=== PATIENT | female | born 1990 | race Caucasian/White ===

== ENCOUNTER 2022-10-20 00:08 | Day surgery (SDC) | payer OTHER, SELFPAY ==
[2022-10-07 12:51] VITALS: BMI 23.7
--- NOTE | 2022-10-07 12:56 | PC.NURSE ---
Report to the Outpatient Waiting Room, entrance under the green pavilion located off [facility], at time 0630 on date 10/20/22. Planned Procedure Time: 0830. Time changes happen often and if your time is changed the preop area will call you the afternoon before. - You and your visitor will be asked to self-screen and do not enter if you have any COVID symptoms. - Only one visitor is requested with a max of two and NO children visitors are allowed at this time. - The patient visitor may be requested to leave or wait in car when not with patient due to distancing restrictions. - A mask is optional within the hospital. Patients may have clear liquids (water, carbonated beverages, clear teas, apple juice) until 3 hours prior to surgery with a maximum of 20 ounces. - No food from midnight until time of surgery Take the following medications with a SIP of water the morning of surgery: NONE Medications to discontinue per physician: VITAMIN Date to take last dose: 10/16/22 Please no make-up, nail maltese, hairspray, perfume, deodorant, or body powder the day of surgery. No jewelry (including any body piercings) or valuables the day of surgery, leave them at home. Please take a shower or bath the night before, or the morning of, surgery with an antibacterial soap. Wear comfortable, loose fitting clothing. - Jewelry must be removed prior to entering the operating room. Rings and piercings that are not removed may be cut off. - The hospital will not accept responsibility for valuables. - Please leave all valuables, including medications, at home the day of surgery. If you are going home after surgery, a licensed electric mule driver must drive you home. - NO public transportation without another adult if you receive anesthesia. - We recommend that an adult stay with you for 24 hours following discharge. - We also recommend that you do not drive, make important decision, drink alcoholic beverages, or take any drugs that were not prescribed by your health care provider for at least 24 hours after your discharge time. Follow any additional instructions given to you from your surgeon. If you or anyone in your household have experienced Covid symptoms in the past week, please notify your surgeon or the nurse liaison at the phone number below for possible testing. Telephone instructions given to PT - SILVINO ROSE and asked if any additional questions and then verbalized understanding. Patient advised to call surgeon office or pre surgery nurse liaison [phone] if any additional questions.
[2022-10-20] VITALS (7 sets, daily range): BP systolic 110–131; BP diastolic 83–96; PULSE 77–110; RESP 14–20; TEMP 36.1–36.7; O2SAT 96–100
[2022-10-20] MEDS: TRANEXAMIC ACID 1,000MG/ISO100 1,000 MG/100 ML BAG 200 MG IVPB (07:15)
[2022-10-20] MEDS: LACTATED RINGERS 1,000 ML 30 ML IV CONT ×2 (07:15→09:35)
--- NOTE | 2022-10-20 07:15 | WPDHPUPDATE1 ---
History and Physical Update Update Date/Time: 10/20/22 07:15 History and Physical has been reviewed, including an updated exam of the patient. There are NO changes in the patient's condition. Risks, benefits, and alternatives have been discussed and questions answered. Patient agrees to proceed with procedure.
--- NOTE | 2022-10-20 07:20 | W.PM.PROC2 ---
Procedure Note - Detailed Date of Procedure 10/20/22 Pre-op Diagnosis micromastia Post-op Diagnosis Same Procedure Performed Bilateral Augmentation Mammaplasty Surgeon Loc Garcia MD Anesthesia General Findings Bilateral Dual Plane 2 Augmentation Mammaplasty Bilateral Derek Cohesive 440cc Right - REF# SCLP-440 SN [id number] Left - REF# SCLP-440 SN [id number] Description of Procedure She is here today for bilateral breast augmentation. Previously and again today the risks, benefits, alternatives were discussed in extensive detail. I wanted her to be very realistic about the risks involved as well as expectations. We discussed aftercare and what to monitor for. Made sure answered all of her questions to her satisfaction today and consent was obtained. Marked in the preoperative holding area with their verification. The patient was taken to the operating room placed supine on the operating table. Anesthesia was provided by anesthesiology. A surgical time-out was taken. We cleansed the skin and 1% lidocaine and 0.25% Marcaine with epinephrine was used anesthetize as a field block. She was prepped and draped in a standard sterile fashion. Tegaderm nipple Arellano were placed. A 15 blade used to make an incision along the inframammary fold. Dissection was continued at 45 degree angle until the chest wall as identified. I incised the pectoralis major along its inferior border and completely released the inferior border leaving the medial border intact. I created a subpectoral pocket in the appropriate dimensions based on our preoperative planning for the implant. I then copiously irrigated with saline solution and verified a strict hemostasis. Next the use a triple antibiotic and Betadine containing solution to irrigate the pocket. I washed my gloves with the triple antibiotic and Betadine solution. We washed the implant immediately upon opening it with this solution and only opened it when we needed it. I used implant funnel and no-touch technique. The implant was introduced into the pocket using the funnel. Having verified positioning of the implant this was closed using 2-0 Vicryl followed by 3-0 Monocryl in a running subcuticular 4-0 Monocryl followed by tissue glue. Fluffs and surgical bra were placed. Patient was awoke and taken to PACU without difficulty. All instrument sponge counts were correct at the end of the case. Estimated Blood Loss 20 Drains No Packing No Pathology None sent Complications No immediate complications Condition Stable Disposition PACU
--- NOTE | 2022-10-20 08:34 | WPDANESEPPF ---
Anes - Initial Pre Proc Eval Procedure: Operation Date: 10/20/22 08:30 Proposed Procedures p Bilateral Breast Augmentation - Loc Garcia MD Date/Time: 10/20/22 08:34 Surgeon: Loc Garcia MD Pre Op Diagnosis: micromastia Patient Data Age: 32 Gender: F Height: 1.73 m Weight: 68.95 kg Last Vital Signs Temp 36.1 C L 10/20/22 07:30 Pulse 98 10/20/22 07:30 Resp 14 10/20/22 07:30 BP 110/84 10/20/22 07:30 Pulse Ox 100 10/20/22 07:30 O2 Del Method Room Air 10/20/22 07:30 Allergies Allergy/AdvReac Type Severity Reaction Status Date / Time clavulanic acid Allergy Mild HIVES,ITCHI Verified 10/20/22 07:43 NG amoxicillin Allergy Unknown Hives Verified 10/20/22 07:43 cefaclor Allergy Unknown Hives Verified 10/20/22 07:43 Penicillins Allergy Hives Verified 10/20/22 07:43 Home Medications Medication Instructions Recorded Confirmed Type multivitamin with iron (Hair 1 tablet PO DAILY 10/07/22 10/07/22 History Vitamins tablet) Patient hx anesthesia problems: none Family hx anesthesia problems: none Results Review: All pre-operative results and documents have been reviewed as part of the pre-operative evaluation. [facility] Social History Social History Smoking status: Never smoker Alcohol intake: current Drinks per week: 4 Substance use: current Substance use type: marijuana Other substance usage details: GUMMIES TO SLEEP Living arrangements: with family Spiritual care concerns: No Anes - Eval Final PreProcedure Day of Procedure 10/20/22 08:34 Patient weight: normal Heart: regular rate and rhythm Lungs: clear to auscultation Airway: Mallampati scale class II Neurological: alert and oriented Last oral intake: >/= 8 hours ASA classification: I Emergent: no Anesthetic plan: proceed Anesthesia type and monitoring: general LMA and standard monitoring Results Review: All pre-operative results and documents have been reviewed as part of the pre-operative evaluation. Informed Consent: The patient's anesthetic plan and its attendant risks and benefits were discussed with the patient/family/POA. Questions were solicited and answers provided to the satisfaction of the patient/family/POA.
[2022-10-20] MEDS: ceFAZolin 2 GM/D5W 50 ML 2 GM/50 ML BAG IVPB (08:40)
[2022-10-20] MEDS: LIDO 1%/EPINEPHRINE/PF 1:200,000 30 ML VIAL XX (08:49)
[2022-10-20] MEDS: BUPIVACAINE HCL 0.25% PF 30 ML VIAL INFILTRATE (08:49)
[2022-10-20] MEDS: NACL 0.9% IRRIG POUR BOTTLE 900 ML, GENTAMICIN SULFATE INJ 160 MG, CLINDAMYCIN PHOS INJ... IRRIGATION (09:11)
[2022-10-20] MEDS: fentaNYL CITRATE INJ (*CRX) 100 MCG/2 ML VIAL 25 MCG IV PUSH ×4 (10:03→10:16)
[2022-10-20] MEDS: oxyCODONE HCL (*CRX) 5 MG TAB IR PO (10:34)
== END 2022-10-20 11:20 | disposition home or self-care (01) ==
PROVIDERS: Visit Provider Surgery Plastic and Reconstructive Surgery
PROC: (CPT 19325; principal; 2022-10-20 08:30)
DX: Z41.1 Encounter for cosmetic surgery (principal); N64.82 Hypoplasia of breast
CPT/HCPCS: 19325; A9270; J0690; J1100; J1170; J1580; J2250; J2405; J2704; J3010; J7120

== ENCOUNTER 2025-11-05 09:39 | Outpatient (CLI) | payer OTHER, SELFPAY ==
--- NOTE | ~2025-11-05 | MMUS_ITS ---
EXAMINATION: MM diag chente implant BI w rick, US breast RT limited HISTORY: Palpable abnormality on the right. TECHNIQUE: Craniocaudal and mediolateral oblique 3-D tomosynthesis images were obtained and synthetic 2-D images were generated. CAD analysis was submitted and interpreted. Grayscale sonography over the area(s) of interest with color Doppler if there is a finding. COMPARISON: None available. BREAST PARENCHYMAL COMPOSITION: Dense: The breasts are heterogeneously dense, which may obscure small masses. MAMMOGRAM FINDINGS: There is/are retropectoral silicone implants. The presence of implants decreases the sensitivity of mammography. No suspicious masses are seen. There are no suspicious calcifications. No unexplained architectural distortion is seen. There are no skin or nipple abnormalities identified. There is no adenopathy seen on the images submitted. ULTRASOUND FINDINGS: No cystic or solid masses are seen in the area(s) of concern. Dense tissue is noted. IMPRESSION: No mammographic evidence to suggest malignancy is seen. Negative or inconclusive breast imaging studies should not deter biopsy if there are clinically suspicious palpable abnormalities. The patient may return to screening mammography as per ACR guidelines. BI-RADS 1 - Negative. Reviewed, dictated and finalized at location C. [facility] IMPRESSION: No mammographic evidence to suggest malignancy is seen. Negative or inconclusiv e breast imaging studies should not deter biopsy if there are clinically suspic ious palpable abnormalities. The patient may return to screening mammography as per ACR guidelines. BI-RADS 1 - Negative.
--- OUTSIDE RECORDS SUMMARY | 2025-11-05 10:51 | XMS_ITS | Clinical Summary ---
Author Organization [facility] Address [address] [place] [address] Care Team Providers Care Welding Machine Operator Gas Name Role Phone Jimenez Piedra MD Primary Care Provider [phone] Source Comments [facility],non-owned Affiliates and Associated Physician Practices is amultiple site organization consisting of ambulatory clinics and hospital sitesin [place], [place], [place] and [place]. This disclosure is being madepursuant to the Care Everywhere program and may not contain all information available regarding this patient. Last updated 18.[facility] Allergies Active Allergy Reactions Criticality Noted Date Comments Penicillins Unknown 02/23/2019 Medications * Be aware that medications may not be up to date on this document. Alwaysverify current medications with the patient. Vit-Fe Fumarate-FA ( VITAMIN) 28-0.8 MG tabletIndicati ons: Take 1 tablet by mouth once daily Reasons: Active pyridoxine (VITAMIN B-6) 25 MG tablet Take 50 mg by mouth as needed Active doxylamine (UNISOM) 25 MG tablet Take 25 mg by mouth nightly as needed for Insomnia Active progesterone (ENDOMETRIN) 100 MGIndications: labor prevention Insert 1 suppository into the vagina at bedtime Reasons: labor prevention 21 suppository 4 9 Active Active Problems Problem Noted Date Diagnosed Date resulting from in vitro fertilization 01/11/2019 Assessment & Plan (01/11/2019 4:16 PM FAMILY DAY CARE PROVIDER): Plan: echocardiogram by 30 weeks--referral made to Pediatric Cardiology Anxiety 01/11/2019 contractions 01/11/2019 Overview (01/11/2019): 12/06: hospitalized and given terbutaline; CL was assessed to be 3.55 cm (twin ) Dichorionic diamniotic twin , antepartu m 01/10/2019 Overview (01/11/2019): Dating: Outside ultrasound performed in the 7th week (on 08/29/2018) larger twin measuring 7 weeks and 3 days; GAUDENCIO 04/14/19. summary: all hand written in [facility], no documented labs sent A+/Imm/-/- HIV NR H&H 14.2/41.6/platelet 330 Antibody screen: negative 06/2017 pap normal Cell free DNA low risk x2, predicted female x2 Assessment & Plan (01/11/2019 4:16 PM FAMILY DAY CARE PROVIDER): Plan: Nightly vaginal progesterone until 35 weeks Serial growth every 4 weeks No indication for testing Total weight gain 31-50 lb, evenly distributed over the Delivery initiation in the 38th week Would benefit from Resolved Problems Problem Noted Date Diagnosed Date Resolved Date Supervision of high-risk pre gnancy of young multigravida 01/10/2019 01/11/2019 Overview (01/11/2019): Immunizations Immunization Administration Dates Next Due TDAP (7yrs+) 02/23/2019 Family History Medical History Relation Name Comments CAD (Coronary Artery Disease) Paternal Grandfather Relation Name Status Comments Brother Alive Father Alive Maternal Grandfather Maternal Grandmother Mother Alive Paternal Grandfather Paternal Grandmother Sister 1 Alive Sister 2 Alive Social History Tobacco Use Types Packs/Day Years Used Date Smoking Tobacco: Never Smokeless Tobacco: Never Alcohol Use Standard Drinks/Week Comments No 0 (1 standard drink = 0.6 oz pur e alcohol) Comments No Sex and Gender Information Value Date Recorded Sex Assigned at Not on file Legal Sex Female 2:43 PM FAMILY DAY CARE PROVIDER Gender Identity Not on file Sexual Orientation Not on file Last Filed Vital Signs Vital Sign Reading Time Taken Comments Blood Pressure 117/82 01/11/2019 2:43 PM FAMILY DAY CARE PROVIDER Pulse 116 01/11/2019 2:43 PM FAMILY DAY CARE PROVIDER Temperature - - Respiratory Rate - - Oxygen Saturation - - Inhaled Oxygen Concentration - - Weight 80 kg (176 lb 6.4 oz) 01/11/2019 2:43 PM FAMILY DAY CARE PROVIDER Height 172.7 cm (5' 8) 01/11/2019 2:43 PM FAMILY DAY CARE PROVIDER Body Mass Index 26.82 01/11/2019 2:43 PM FAMILY DAY CARE PROVIDER Plan of Treatment Health Maintenance Due Date Last Done Comments HIV SCREENING 2003 HEPATITIS C SCREENING 06/24/2006 HEPATITIS B VACCINE (1 of 3 - 19+ 3-dose series) 2007 HPV VACCINE (1 - 3-dose SCDM series) 2015 DEPRESSION SCREENING 11/15/2024 COVID-19 VACCINE ( - 2024-2 6 season) 2025 INFLUENZA VACCINE (#1) 2025 DTAP/TDAP/TD VACCINES (2 - T d or Tdap) 02/23/2029 02/23/2019 ZOSTER VACCINE (1 of 2) 2038 HIB VACCINE Aged Out No longer eligi ble based on patient's age to complete this topic MENINGOCOCCAL (Group B) VACC INE SHARED DECISION-MAKING Aged Out No longer eligibl e based on patient's age to complete this topic MENINGOCOCCAL GROUPS A/C/Y/W VACCINE Aged Out No longer eligible b ased on patient's age to complete this topic PNEUMOCOCCAL VACCINE Aged Out No long er eligible based on patient's age to complete this [place] [address] [facility] Care Teams Welding Machine Operator Gas Relationship Specialty Start Date End Date Jimenez Piedra MD [address] [place] [address] PCP - General Obstetrics and Gynecology 12/20/18
== END 2025-11-05 09:40 | disposition home or self-care (01) ==
PROVIDERS: PCP Nurse Practitioner; Visit Provider Obstetrics & Gynecology
DX: N63.10 Unspecified lump in the right breast, unspecified quadrant (principal)
CPT/HCPCS: 76642; 77062; 77066; G0279